=== PATIENT | female | born 1935 | race Caucasian/White ===

== ENCOUNTER 2022-04-20 11:42 | Inpatient (IN) | payer MEDICARE ==
[2022-04-20] MEDS ORDERED: Sodium Chloride 0.9% 1,000 ML IV SCH (14:00)
[2022-04-20] MEDS ORDERED: Dextrose 50% Abboject 50 ML SYRINGE SLOW IVP PRN ×2 (14:00→15:13)
[2022-04-20] MEDS ORDERED: CEFAZOLIN 2 GM in Sodium Chloride 0.9% 100 ML IVPB SCH (14:00)
[2022-04-20] MEDS ORDERED: Dextrose 5% in Water 1,000 ML IV PRN ×2 (14:00→15:13)
[2022-04-20] MEDS ORDERED: hydrALAZINE 20 MG/ML VIAL SLOW IVP PRN (14:00)
[2022-04-20] MEDS ORDERED: Ondansetron PF 4 MG/2 ML Vial IVP PRN (14:00)
[2022-04-20 14:13] LABS: ALT (SGPT) 19 U/L (8-55); AST (SGOT) 29 U/L (5-34); Albumin 3.6 g/dL (3.4-4.8); Alkaline Phosphatase 74 U/L (40-110); Anion Gap 18 mmol/L (10-20); BUN (Urea Nitrogen) 39 mg/dL (9.8-20.1); Bilirubin, Total 0.4 mg/dL (0.2-1.2); CK (CPK) 612 U/L (29-168); Calc. Creatinine Clearance 0 mL/min (70-130); Calcium 9.3 mg/dL (7.8-10.44); Carbon Dioxide 19 mmol/L (23-31); Chloride 104 mmol/L (98-107); Estimated GFR 36; Globulin 3.5 g/dL (2.4-3.5); Glucose 134 mg/dL (83-110); Potassium 3.6 mmol/L (3.5-5.1); Protein, Total 7.1 g/dL (5.8-8.1); Sodium 137 mmol/L (136-145)
[2022-04-20 14:22] LABS: #Lymphocytes 0.5 thou/uL (1.20-3.40); #Monocytes 0.7 thou/uL (0.11-0.59); #Neutrophils 3.9 thou/uL (1.40-6.50); %Basophils 0.1 % (0.0-1.0); %Eosinophils 0.6 % (0.0-10.0); %Lymphocytes 10.3 % (21.0-51.0); %Monocytes 13.8 % (0.0-10.0); %Neutrophils 75.2 % (42.0-75.0); Hemoglobin 17.2 g/dL (12.0-16.0); Large Platelets SLIGHT; MDiff Complete? YES; Mean Corpuscular HGB CONC 31.9 g/dL (32.0-36.0); Mean Corpuscular Hemoglobin 30.7 pg (27.0-31.0); Mean Corpuscular Volume 96.1 fL (78.0-98.0); Mean Platelet Volume 12.6 fL (7.4-10.4); Platelet Count 49 thou/uL (130-400); Platelet Morphology Comment Appears Decreased; Polychromasia SLIGHT = 2-3 cells (100X) (0-2/hpf); RBC Distribution Width 14.8 % (11.5-14.5); White Blood Cell (WBC) Count 5.2 thou/uL (4.8-10.8)
[2022-04-20 14:41] LABS: Troponin I 0.025 ng/mL (< 0.028)
[2022-04-20 14:56] LABS: Bacteria/HPF 3+ HPF (None Seen); Bilirubin Negative (Negative); Blood, Urine Negative (Negative); Clarity Clear (Clear); Glucose, Urine (Dipstick) Normal (Negative); Ketone, Urine Negative (Negative); Leukocyte 250 Leu/uL (Negative); Nitrite Negative (Negative); Protein, Urine (Dipstick) Negative (Neg-Trace); RBC/HPF 0-3 HPF (0-3); Specific Gravity, Urine 1.011 (1.002-1.036); Urobilinogen Normal mg/dL (Less than 2)
[2022-04-20] MEDS ORDERED: Insulin Regular 300 UNITS/3 ML VIAL SC PRN (15:13)
[2022-04-20 15:56] LABS: INR-International Normal Ratio 1.1; Prothrombin Time 13.8 sec (12.0-14.7)
[2022-04-20 15:57] LABS: PTT 27.1 sec (22.9-36.1)
[2022-04-20] MEDS ORDERED: cefTRIAXone\\ROCEPHIN 2 GM in Sodium Chloride 0.9% 100 ML IVPB SCH (16:00)
[2022-04-20 16:11] LABS: SARS-CoV-2 NAA Rapid Test Not Detected (NotDetected)
[2022-04-20 16:17] VITALS: BMI 40.2
[2022-04-20] MEDS: Acetaminophen 325 MG TAB PO PRN ×2 (16:30→23:40)
[2022-04-20] MEDS: Sodium Chloride 0.9% 1,000 ML IV SCH (16:32)
[2022-04-20] MEDS ORDERED: Famotidine/PF 20 mg/2ml Vial SLOW IVP SCH (21:00)
[2022-04-20] MEDS: Amlodipine 5 MG TAB PO SCH (21:58)
[2022-04-20] MEDS: Senokot S 8.6-50 MG TAB PO SCH (21:59)
[2022-04-21] MEDS: Sodium Chloride 0.9% 1,000 ML IV SCH (04:57)
[2022-04-21 06:08] LABS: INR-International Normal Ratio 1.1; Prothrombin Time 14.8 sec (12.0-14.7)
[2022-04-21 06:09] LABS: PTT 45.2 sec (22.9-36.1)
[2022-04-21 06:19] LABS: Anion Gap 16 mmol/L (10-20); BUN (Urea Nitrogen) 39 mg/dL (9.8-20.1); CK (CPK) 387 U/L (29-168); Calc. Creatinine Clearance 48 mL/min (70-130); Calcium 8.6 mg/dL (7.8-10.44); Carbon Dioxide 17 mmol/L (23-31); Chloride 107 mmol/L (98-107); Estimated GFR 38; Glucose 111 mg/dL (83-110); Magnesium 1.8 mg/dL (1.6-2.6); Phosphorus 3.6 mg/dL (2.3-4.7); Potassium 3.8 mmol/L (3.5-5.1); Sodium 136 mmol/L (136-145)
[2022-04-21 07:23] LABS: Mean Corpuscular HGB CONC 31.7 g/dL (32.0-36.0); Mean Corpuscular Hemoglobin 30.6 pg (27.0-31.0); Mean Corpuscular Volume 96.6 fL (78.0-98.0); Mean Platelet Volume 11.5 fL (7.4-10.4); Platelet Count 110 thou/uL (130-400); RBC Distribution Width 14.2 % (11.5-14.5); Red Blood Cell (RBC) Count 2.61 mill/uL (4.20-5.40); White Blood Cell (WBC) Count 10.2 thou/uL (4.8-10.8)
[2022-04-21 08:34] LABS: Band 2 % (5-11); Lymphocytes 19 % (21-51); MDiff Complete? YES; Metamyelocyte 1 % (0-0); Monocytes 20 % (0-10); Neutrophil 58 % (42-75); Platelet Morphology Comment Appears Decreased; Polychromasia SLIGHT = 2-3 cells (100X) (0-2/hpf)
[2022-04-21] MEDS: Senokot S 8.6-50 MG TAB PO SCH ×2 (09:38→20:58)
[2022-04-21] MEDS: Polyethylene Glycol 3350 17 GM Packet PO SCH (09:38)
[2022-04-21] MEDS: Escitalopram Oxalate 10 mg Tablet PO SCH (09:43)
[2022-04-21] MEDS ORDERED: fentaNYL Citrate/PF 100 MCG/2 ML SYRINGE ONE ×2 (13:11→15:20)
[2022-04-21] MEDS ORDERED: CEFAZOLIN 2 GM VIAL ONE (13:24)
[2022-04-21] MEDS ORDERED: Sodium Chloride 0.9% 100 ML ONE (13:24)
[2022-04-21] MEDS ORDERED: PROPOFOL 200 MG/20 ML VIAL ONE (13:36)
[2022-04-21] MEDS ORDERED: Phenylephrine 10 MG/ML VIAL ONE (13:36)
[2022-04-21] MEDS ORDERED: Ondansetron PF 4 MG/2 ML Vial ONE (13:36)
[2022-04-21] MEDS ORDERED: Rocuronium Bromide 10 MG/ML (10ML VIAL) ONE (13:36)
[2022-04-21] MEDS ORDERED: SUGAMMADEX SODIUM 200 MG/2 ML VIAL ONE (14:11)
[2022-04-21] MEDS ORDERED: Promethazine HCl 25 MG/ML VIAL IM PRN (14:53)
[2022-04-21] MEDS ORDERED: Promethazine HCl 25 MG/ML VIAL IVPB PRN (14:53)
[2022-04-21] MEDS ORDERED: Ondansetron HCl/PF 4 MG/2 ML Vial IVP PRN (14:53)
[2022-04-21] MEDS ORDERED: Promethazine HCl 25 MG/ML VIAL ONE (15:07)
[2022-04-21] MEDS: cefTRIAXone\\ROCEPHIN 1 GM in Sodium Chloride 0.9% 100 ML IVPB SCH (16:35)
[2022-04-21] MEDS: Morphine 2 MG/ML VIAL SLOW IVP PRN (17:24)
[2022-04-21] MEDS: CEFAZOLIN 2 GM in Sodium Chloride 0.9% 100 ML IVPB SCH (20:59)
[2022-04-21] MEDS: Amlodipine 5 MG TAB PO SCH (20:59)
[2022-04-21] MEDS: Acetaminophen/Codeine 30-300mg Tablet PO PRN (20:59)
[2022-04-21 23:28] LABS: Hemoglobin 8.1 g/dL (12.0-16.0); Mean Corpuscular HGB CONC 32.3 g/dL (32.0-36.0); Mean Corpuscular Hemoglobin 31.3 pg (27.0-31.0); Mean Corpuscular Volume 96.9 fL (78.0-98.0); Mean Platelet Volume 10.8 fL (7.4-10.4); Platelet Count 123 thou/uL (130-400); RBC Distribution Width 14.1 % (11.5-14.5); Red Blood Cell (RBC) Count 2.58 mill/uL (4.20-5.40); White Blood Cell (WBC) Count 15.1 thou/uL (4.8-10.8)
[2022-04-22 00:05] LABS: Band 5 % (5-11); Eosinophils 1 % (0-10); Large Platelets SLIGHT; Lymphocytes 9 % (21-51); MDiff Complete? YES; Metamyelocyte 1 % (0-0); Monocytes 13 % (0-10); Neutrophil 69 % (42-75); Platelet Morphology Comment Appears Decreased; RBC Morphology Normal; Reactive Lymphocytes 1 % (0-10)
[2022-04-22] MEDS ORDERED: Lactated Ringer's 500 ML IV SCH (04:15)
[2022-04-22] MEDS ORDERED: Magnesium 2 GM/50 ML(in water) 2 GM in Premix Bag 1 BAG IVPB SCH (04:15)
[2022-04-22 06:08] LABS: Anion Gap 14 mmol/L (10-20); BUN (Urea Nitrogen) 37 mg/dL (9.8-20.1); Calc. Creatinine Clearance 46 mL/min (70-130); Calcium 8.8 mg/dL (7.8-10.44); Carbon Dioxide 17 mmol/L (23-31); Chloride 111 mmol/L (98-107); Estimated GFR 36; Glucose 134 mg/dL (83-110); Magnesium 1.8 mg/dL (1.6-2.6); Phosphorus 3.4 mg/dL (2.3-4.7); Sodium 138 mmol/L (136-145)
[2022-04-22 06:22] LABS: Hemoglobin 7.7 g/dL (12.0-16.0); Large Platelets SLIGHT; Lymphocytes 8 % (21-51); MDiff Complete? YES; Mean Corpuscular HGB CONC 32.1 g/dL (32.0-36.0); Mean Corpuscular Volume 96.6 fL (78.0-98.0); Monocytes 19 % (0-10); Neutrophil 73 % (42-75); Platelet Count 125 thou/uL (130-400); Platelet Morphology Comment Appears Decreased; RBC Distribution Width 14.2 % (11.5-14.5); RBC Morphology Normal; Red Blood Cell (RBC) Count 2.49 mill/uL (4.20-5.40); White Blood Cell (WBC) Count 14.4 thou/uL (4.8-10.8)
[2022-04-22] MEDS ORDERED: Lactated Ringer's 1,000 ML IV SCH (06:30)
[2022-04-22] MEDS ORDERED: PHOS-NAK 1 PKT PACK PO SCH (07:45)
[2022-04-22] MEDS: CEFAZOLIN 2 GM in Sodium Chloride 0.9% 100 ML IVPB SCH (08:30)
[2022-04-22] MEDS: Aspirin 81 mg Enteric Coated Tablet PO SCH ×2 (08:39→20:16)
[2022-04-22] MEDS: Polyethylene Glycol 3350 17 GM Packet PO SCH (08:40)
[2022-04-22] MEDS: Escitalopram Oxalate 10 mg Tablet PO SCH (08:40)
[2022-04-22] MEDS: Senokot S 8.6-50 MG TAB PO SCH ×2 (08:41→20:16)
[2022-04-22] MEDS: Lisinopril/Hydrochlorothiazide 20/25 mg Tablet PO SCH (08:41)
[2022-04-22] MEDS: Acetaminophen/Codeine 30-300mg Tablet PO PRN (08:44)
[2022-04-22] MEDS ORDERED: Acetaminophen/Codeine 30-300mg Tablet PO PRN (10:18)
[2022-04-22] MEDS ORDERED: Acetaminophen/Codeine 30-300mg Tablet PO SCH (10:30)
[2022-04-22] MEDS: Morphine 2 MG/ML VIAL SLOW IVP PRN (10:49)
[2022-04-22] MEDS: Acetaminophen 325 MG TAB PO SCH ×2 (12:13→18:11)
[2022-04-22] MEDS: Acetaminophen/Codeine 30-300mg Tablet PO SCH ×2 (12:14→18:12)
[2022-04-22] MEDS: cefTRIAXone\\ROCEPHIN 1 GM in Sodium Chloride 0.9% 100 ML IVPB SCH (16:49)
[2022-04-22] MEDS: Ascorbic Acid 500 mg Chewable Tablet PO SCH (18:10)
[2022-04-22] MEDS: Ferrous Sulfate 325 MG TAB PO SCH (18:11)
[2022-04-22] MEDS: Amlodipine 5 MG TAB PO SCH (20:16)
[2022-04-22] MEDS ORDERED: Ascorbic Acid 500 mg Chewable Tablet PO SCH (21:00)
[2022-04-23] MEDS: Acetaminophen/Codeine 30-300mg Tablet PO SCH ×5 (01:00→23:48)
[2022-04-23] MEDS: Acetaminophen 325 MG TAB PO SCH ×5 (01:00→23:47)
[2022-04-23 07:47] LABS: Anion Gap 14 mmol/L (10-20); BUN (Urea Nitrogen) 44 mg/dL (9.8-20.1); Calc. Creatinine Clearance 36 mL/min (70-130); Calcium 8.6 mg/dL (7.8-10.44); Carbon Dioxide 18 mmol/L (23-31); Chloride 107 mmol/L (98-107); Estimated GFR 27; Glucose 115 mg/dL (83-110); Magnesium 2.3 mg/dL (1.6-2.6); Phosphorus 4.4 mg/dL (2.3-4.7); Potassium 4.2 mmol/L (3.5-5.1); Sodium 135 mmol/L (136-145)
[2022-04-23] MEDS: Senokot S 8.6-50 MG TAB PO SCH ×2 (08:00→20:19)
[2022-04-23] MEDS: Aspirin 81 mg Enteric Coated Tablet PO SCH (08:01)
[2022-04-23] MEDS: Polyethylene Glycol 3350 17 GM Packet PO SCH (08:01)
[2022-04-23] MEDS: Escitalopram Oxalate 10 mg Tablet PO SCH (08:02)
[2022-04-23] MEDS: Ascorbic Acid 500 mg Chewable Tablet PO SCH ×2 (08:02→17:15)
[2022-04-23] MEDS: Ferrous Sulfate 325 MG TAB PO SCH ×2 (08:02→17:15)
[2022-04-23] MEDS: Lisinopril/Hydrochlorothiazide 20/25 mg Tablet PO SCH (08:02)
[2022-04-23 09:11] LABS: Eosinophils 1 % (0-10); Hemoglobin 7.3 g/dL (12.0-16.0); Lymphocytes 16 % (21-51); MDiff Complete? YES; Mean Corpuscular HGB CONC 31.5 g/dL (32.0-36.0); Mean Corpuscular Hemoglobin 29.5 pg (27.0-31.0); Mean Corpuscular Volume 93.7 fL (78.0-98.0); Mean Platelet Volume 10.5 fL (7.4-10.4); Monocytes 21 % (0-10); Neutrophil 62 % (42-75); Platelet Count 114 thou/uL (130-400); Platelet Morphology Comment Appears Decreased; RBC Distribution Width 16.7 % (11.5-14.5); Red Blood Cell (RBC) Count 2.48 mill/uL (4.20-5.40); Rouleaux Formation SLIGHT = 1-5 cells (100X) (None Seen); White Blood Cell (WBC) Count 12.2 thou/uL (4.8-10.8)
[2022-04-23 10:10] LABS: Hemoglobin 7.9 g/dL (12.0-16.0); Lymphocytes 11 % (21-51); MDiff Complete? YES; Mean Corpuscular HGB CONC 33.2 g/dL (32.0-36.0); Mean Corpuscular Hemoglobin 31.4 pg (27.0-31.0); Mean Corpuscular Volume 94.6 fL (78.0-98.0); Mean Platelet Volume 11.1 fL (7.4-10.4); Monocytes 20 % (0-10); Neutrophil 68 % (42-75); Platelet Count 115 thou/uL (130-400); Platelet Morphology Comment Appears Decreased; RBC Distribution Width 16.9 % (11.5-14.5); RBC Morphology Normal; Red Blood Cell (RBC) Count 2.51 mill/uL (4.20-5.40); White Blood Cell (WBC) Count 13.3 thou/uL (4.8-10.8)
[2022-04-23] MEDS: cefTRIAXone\\ROCEPHIN 1 GM in Sodium Chloride 0.9% 100 ML IVPB SCH (14:17)
[2022-04-23] MEDS: Amlodipine 5 MG TAB PO SCH (20:19)
[2022-04-24] MEDS: Acetaminophen/Codeine 30-300mg Tablet PO SCH ×3 (06:02→17:20)
[2022-04-24] MEDS: Acetaminophen 325 MG TAB PO SCH ×3 (06:02→17:21)
[2022-04-24 07:23] LABS: Anion Gap 17 mmol/L (10-20); BUN (Urea Nitrogen) 46 mg/dL (9.8-20.1); Calc. Creatinine Clearance 32 mL/min (70-130); Calcium 8.6 mg/dL (7.8-10.44); Carbon Dioxide 17 mmol/L (23-31); Chloride 101 mmol/L (98-107); Estimated GFR 23; Glucose 105 mg/dL (83-110); Magnesium 2.2 mg/dL (1.6-2.6); Phosphorus 4.8 mg/dL (2.3-4.7); Potassium 4.6 mmol/L (3.5-5.1); Sodium 130 mmol/L (136-145)
[2022-04-24] MEDS: Polyethylene Glycol 3350 17 GM Packet PO SCH (08:09)
[2022-04-24] MEDS: Senokot S 8.6-50 MG TAB PO SCH ×2 (08:09→20:05)
[2022-04-24] MEDS: Ascorbic Acid 500 mg Chewable Tablet PO SCH ×2 (08:50→17:20)
[2022-04-24] MEDS: Ferrous Sulfate 325 MG TAB PO SCH ×2 (08:51→17:20)
[2022-04-24] MEDS: Escitalopram Oxalate 10 mg Tablet PO SCH (08:51)
[2022-04-24] MEDS ORDERED: Sodium Chloride 0.9% 1,000 ML IV SCH (09:15)
[2022-04-24] MEDS ORDERED: Sodium Chloride 1 GM TAB PO SCH (10:00)
[2022-04-24 10:20] LABS: Hemoglobin 8.8 g/dL (12.0-16.0)
[2022-04-24] MEDS ORDERED: Furosemide 20 MG/2 ML VIAL SLOW IVP SCH (14:15)
[2022-04-24] MEDS: Sodium Chloride 1 GM TAB PO SCH ×2 (14:21→21:55)
[2022-04-24] MEDS: Melatonin 3 MG TAB PO SCH (20:05)
[2022-04-24] MEDS: Amlodipine 5 MG TAB PO SCH (20:05)
[2022-04-25] MEDS: Acetaminophen/Codeine 30-300mg Tablet PO SCH ×4 (00:11→17:28)
[2022-04-25] MEDS: Acetaminophen 325 MG TAB PO SCH ×4 (00:11→17:28)
[2022-04-25] MEDS: Sodium Chloride 1 GM TAB PO SCH ×2 (06:28→14:12)
[2022-04-25 06:35] LABS: Hemoglobin 8.2 g/dL (12.0-16.0); Hypochromia SLIGHT = 6-15 cells (100X) (0-5/hpf); Lymphocytes 6 % (21-51); MDiff Complete? YES; Mean Corpuscular HGB CONC 32.8 g/dL (32.0-36.0); Mean Corpuscular Hemoglobin 30.6 pg (27.0-31.0); Mean Corpuscular Volume 93.4 fL (78.0-98.0); Mean Platelet Volume 10.6 fL (7.4-10.4); Monocytes 26 % (0-10); Neutrophil 68 % (42-75); Platelet Count 166 thou/uL (130-400); Platelet Morphology Comment Appears Adequate; RBC Distribution Width 15.9 % (11.5-14.5); Red Blood Cell (RBC) Count 2.68 mill/uL (4.20-5.40); White Blood Cell (WBC) Count 10.6 thou/uL (4.8-10.8)
[2022-04-25 06:48] LABS: Anion Gap 14 mmol/L (10-20); BUN (Urea Nitrogen) 48 mg/dL (9.8-20.1); Calc. Creatinine Clearance 39 mL/min (70-130); Calcium 8.7 mg/dL (7.8-10.44); Carbon Dioxide 18 mmol/L (23-31); Chloride 99 mmol/L (98-107); Estimated GFR 29; Glucose 115 mg/dL (83-110); Magnesium 2.2 mg/dL (1.6-2.6); Phosphorus 3.8 mg/dL (2.3-4.7); Potassium 4.1 mmol/L (3.5-5.1); Sodium 127 mmol/L (136-145)
[2022-04-25] MEDS: Ascorbic Acid 500 mg Chewable Tablet PO SCH ×2 (08:17→17:28)
[2022-04-25] MEDS: Ferrous Sulfate 325 MG TAB PO SCH ×2 (08:17→17:28)
[2022-04-25] MEDS: Polyethylene Glycol 3350 17 GM Packet PO SCH (08:18)
[2022-04-25] MEDS: Escitalopram Oxalate 10 mg Tablet PO SCH (08:18)
[2022-04-25] MEDS: Senokot S 8.6-50 MG TAB PO SCH ×2 (08:18→21:09)
[2022-04-25] MEDS: Furosemide 20 MG TAB PO SCH (08:56)
[2022-04-25] MEDS: Heparin 5,000 UNITS/ML VIAL SC SCH ×3 (08:56→21:10)
[2022-04-25] MEDS: Melatonin 3 MG TAB PO SCH (21:05)
[2022-04-25] MEDS: Amlodipine 5 MG TAB PO SCH (21:06)
[2022-04-26] MEDS: Acetaminophen 325 MG TAB PO SCH ×4 (00:04→17:32)
[2022-04-26] MEDS: Sodium Chloride 1 GM TAB PO SCH ×3 (00:04→14:47)
[2022-04-26] MEDS: Acetaminophen/Codeine 30-300mg Tablet PO SCH ×4 (00:09→17:33)
[2022-04-26 07:07] LABS: Anion Gap 15 mmol/L (10-20); BUN (Urea Nitrogen) 42 mg/dL (9.8-20.1); Calc. Creatinine Clearance 45 mL/min (70-130); Carbon Dioxide 19 mmol/L (23-31); Chloride 103 mmol/L (98-107); Estimated GFR 35; Glucose 172 mg/dL (83-110); Magnesium 2.1 mg/dL (1.6-2.6); Phosphorus 3.2 mg/dL (2.3-4.7); Potassium 4.2 mmol/L (3.5-5.1); Sodium 133 mmol/L (136-145)
[2022-04-26 07:23] LABS: Band 2 % (5-11); Hypochromia SLIGHT = 6-15 cells (100X) (0-5/hpf); Lymphocytes 15 % (21-51); MDiff Complete? YES; Mean Corpuscular HGB CONC 32.6 g/dL (32.0-36.0); Mean Corpuscular Hemoglobin 30.3 pg (27.0-31.0); Mean Corpuscular Volume 92.9 fL (78.0-98.0); Mean Platelet Volume 9.9 fL (7.4-10.4); Monocytes 13 % (0-10); Neutrophil 68 % (42-75); Platelet Count 202 thou/uL (130-400); Platelet Morphology Comment Appears Adequate; Polychromasia SLIGHT = 2-3 cells (100X) (0-2/hpf); Reactive Lymphocytes 2 % (0-10); Red Blood Cell (RBC) Count 2.63 mill/uL (4.20-5.40); Target Cells SLIGHT = 2-5 cells (100X) (0-1/hpf); White Blood Cell (WBC) Count 9.8 thou/uL (4.8-10.8)
[2022-04-26] MEDS: Ferrous Sulfate 325 MG TAB PO SCH ×2 (08:07→17:32)
[2022-04-26] MEDS: Polyethylene Glycol 3350 17 GM Packet PO SCH (08:07)
[2022-04-26] MEDS: Escitalopram Oxalate 10 mg Tablet PO SCH (08:07)
[2022-04-26] MEDS: Furosemide 20 MG TAB PO SCH (08:07)
[2022-04-26] MEDS: Heparin 5,000 UNITS/ML VIAL SC SCH ×2 (08:07→14:47)
[2022-04-26] MEDS: Ascorbic Acid 500 mg Chewable Tablet PO SCH ×2 (08:07→17:32)
[2022-04-26] MEDS: Senokot S 8.6-50 MG TAB PO SCH (08:08)
[2022-04-26 12:43] VITALS: BP 144/76; TEMP 98.1
[2022-04-27] MEDS ORDERED: Lisinopril 20 MG TAB PO SCH (09:00)
== END 2022-04-26 18:34 | DRG 956 ==
LOC: ERS 11:42 → SJJU 14:00
PROVIDERS: ADMIT Surgery; ATTEND Surgery
PROC: 0QH706Z Insertion of Intramedullary Internal Fixation Device into Left Upper Femur, Open Approach (ICD-10-PCS; principal; 2022-04-21)
PROC: 30233N1 Transfusion of Nonautologous Red Blood Cells into Peripheral Vein, Percutaneous Approach (ICD-10-PCS; 2022-04-22)
DX: S72.142A Displaced intertrochanteric fracture of left femur, initial encounter for closed fracture (principal); T79.6XXA Traumatic ischemia of muscle, initial encounter; N17.9 Acute kidney failure, unspecified; N39.0 Urinary tract infection, site not specified; I13.0 Hypertensive heart and chronic kidney disease with heart failure and stage 1 through stage 4 chronic kidney disease, or unspecified chronic kidney disease; E87.1 Hypo-osmolality and hyponatremia; D62 Acute posthemorrhagic anemia; Z20.822 Contact with and (suspected) exposure to COVID-19; D69.6 Thrombocytopenia, unspecified; E11.22 Type 2 diabetes mellitus with diabetic chronic kidney disease; N18.9 Chronic kidney disease, unspecified; I50.9 Heart failure, unspecified; M17.0 Bilateral primary osteoarthritis of knee; B96.20 Unspecified Escherichia coli [E. coli] as the cause of diseases classified elsewhere; F41.9 Anxiety disorder, unspecified; F32.A Depression, unspecified; R33.9 Retention of urine, unspecified; W18.39XA Other fall on same level, initial encounter; Y92.002 Bathroom of unspecified non-institutional (private) residence as the place of occurrence of the external cause; Z90.49 Acquired absence of other specified parts of digestive tract; Z79.899 Other long term (current) drug therapy
CPT/HCPCS: 36415; 36416; 36430; 71045; 72170; 76000; 80048; 80053; 81003; 81015; 82550; 83735; 83880; 84100; 84484; 85014; 85018; 85025; 85610; 85730; 86850; 86900; 86901; 87077; 87086; 87186; 87811; 93005; 93010; 93970; C1713; G0390; J0690; J0696; J1644; J1815; J1940; J2270; J2370; J2405; J2550; J2704; J3475; J3490; J7050; J7120; P9016; U0002